=== PATIENT | male | born 1995 | race Caucasian/White ===

== ENCOUNTER 2018-06-14 13:14 | Emergency (ER) | payer OTHER | END 2018-06-14 17:47 | disposition home or self-care (01) | LOC: FTE 17:47 | DX: S99.922A Unspecified injury of left foot, initial encounter (principal); W20.8XXA Other cause of strike by thrown, projected or falling object, initial encounter; Y92.9 Unspecified place or not applicable | CPT/HCPCS: 73630; 73630-LT; 73660; 99283-25 ==

== ENCOUNTER 2018-11-02 10:25 | Emergency (ER) | payer OTHER ==
[2018-11-02] MEDS: IBUPROFEN 600 MG TAB PO (10:50)
[2018-11-02 11:13] LABS: ADD UMIC NO; UR ASCORBIC ACID NEGATIVE (NEGATIVE); UR BILIRUBIN (Dip) NEGATIVE (NEGATIVE); UR BLOOD (Dip) NEGATIVE (NEGATIVE); UR CLARITY CLEAR (CLEAR); UR COLOR YELLOW (YELLOW); UR GLUCOSE (Dip) NEGATIVE (NEGATIVE); UR KETONES (Dip) NEGATIVE (NEGATIVE); UR LEUKOCYTE ESTERASE (Dip) NEGATIVE Leu/ul (NEGATIVE); UR NITRITE (Dip) NEGATIVE (NEGATIVE); UR SPECIFIC GRAVITY (Dip) 1.016 (1.003-1.030); UR TOTAL PROTEIN (Dip) NEGATIVE (NEGATIVE); UR UROBILINOGEN (Dip) NEGATIVE (NEGATIVE)
== END 2018-11-02 12:09 | disposition home or self-care (01) ==
LOC: FTE 10:25
DX: N50.811 Right testicular pain (principal)
CPT/HCPCS: 76870; 81003; 87591; 99284-25